=== PATIENT | male | born 1990 | race African-American/Black ===

== ENCOUNTER 2019-01-28 17:29 | Emergency (ER) | payer OTHER ==
--- NOTE | 2019-01-28 17:38 | ER Document Report ---
ED Medical Screen (RME) - General Chief Complaint: Probable Seizure Stated Complaint: HEAD INJURY Time Seen by Provider: 01/28/19 17:36 Mode of Arrival: Ambulatory Information source: Patient, Parent TRAVEL OUTSIDE OF THE [place] IN LAST 30 DAYS: No - HPI Patient complains to provider of: head trauma; possible seuzure Onset: Just prior to arrival - pt. with syncopal episode and hit head possible seizure. Feels better now - Related Data Allergies/Adverse Reactions: No Known Allergies Allergy (Unverified 01/28/19 17:34) Physical Exam - Vital signs Vitals: Temp Pulse Resp BP Pulse Ox 99.6 F 73 18 141/82 H 97 01/28/19 17:33 01/28/19 17:33 01/28/19 17:33 01/28/19 17:33 01/28/19 17:33 Course - Vital Signs Vital signs: Temp Pulse Resp BP Pulse Ox 99.6 F 73 18 141/82 H 97 01/28/19 17:33 01/28/19 17:33 01/28/19 17:33 01/28/19 17:33 01/28/19 17:33
[2019-01-28 17:58] LABS: ABSOLUTE EOSINOPHILS # (AUTO) 0.1 10^3/uL (0.0-0.6); ABSOLUTE LYMPHOCYTES (AUTO) 1.5 10^3/uL (0.5-4.7); ABSOLUTE MONOCYTES (AUTO) 0.4 10^3/uL (0.1-1.4); ABSOLUTE NEUT (AUTO) 1.3 10^3/uL (1.7-8.2); BASOPHILS % (AUTO) 0.4 % (0-2); EOSINOPHILS % (AUTO) 2.9 % (0-6); HEMATOCRIT 39.6 % (37.9-51.0); HEMOGLOBIN 13.1 g/dL (13.5-17.0); LYMPHOCYTES % (AUTO) 44.3 % (13-45); MEAN CORPUSCULAR HEMOGLOBIN 24.6 pg (27.0-33.4); MEAN CORPUSCULAR VOLUME 74 fl (80-97); MONOCYTES % (AUTO) 12.8 % (3-13); PLATELET COUNT 136 10^3/uL (150-450); RED BLOOD COUNT 5.32 10^6/uL (4.35-5.55); RED CELL DISTRIBUTION WIDTH 16.1 % (11.5-14.0); SEGMENTED NEUTROPHILS % (AUTO) 39.6 % (42-78); TOTAL CELLS COUNTED % (AUTO) 100 %; WHITE BLOOD COUNT 3.3 10^3/uL (4.0-10.5)
--- NOTE | 2019-01-28 18:13 | RADIOLOGY REPORT (SQ) ---
EXAM DESCRIPTION: CT HEAD WITHOUT COMPLETED DATE/TIME: 01/28/2019 6:02 pm REASON FOR STUDY: head trauma COMPARISON: None. TECHNIQUE: Axial images acquired through the brain without intravenous contrast. Images reviewed wi th bone, brain and subdural windows. Images stored on PACS. All CT scanners at this facility use dose modulation, iterative reconstruction, and/or weight based d osing when appropriate to reduce radiation dose to as low as reasonably achievable (ALARA). [facility]: Dose Right [facility]: CareDose [facility]: Dose Right [facility]: Teradose 4D [facility]: Snapette RADIATION DOSE: CT Rad equipment meets quality standard of care and radiation dose reduction techniq ues were employed. CTDIvol: 53.2 mGy. DLP: 1044 mGy-cm. mGy. LIMITATIONS: None. FINDINGS: VENTRICLES: Normal size and contour. CEREBRUM: No masses. No hemorrhage. No midline shift. No evidence for acute infarction. Normal gra y/white matter differentiation. No areas of low density in the white matter. CEREBELLUM: No masses. No hemorrhage. No alteration of density. No evidence for acute infarction. EXTRAAXIAL SPACES: No fluid collections. No masses. ORBITS AND GLOBE: No intra- or extraconal masses. Normal contour of globe without masses. CALVARIUM: No fracture. PARANASAL SINUSES: No fluid or mucosal thickening. SOFT TISSUES: No mass or hematoma. OTHER: No other significant finding. IMPRESSION: No acute intracranial findings. EVIDENCE OF ACUTE STROKE: NO. COMMENT: Quality ID # [id number]: Final reports with documentation of one or more dose reduction techniques (e.g., Automated exposure control, adjustment of the mA and/or kV according to patient size, use of iterative reconstruction technique) TECHNICAL DOCUMENTATION: JOB ID: [id number] [place]-72 2010 [employer]- All Rights Reserved Reading location - IP/workstation name: [email or web address]
[2019-01-28 18:15] LABS: ALANINE AMINOTRANSFERASE 57 U/L (21-72); ALBUMIN 4.3 g/dL (3.5-5.0); ALKALINE PHOSPHATASE 66 U/L (38-126); ANION GAP 6 (5-19); ASPARTATE AMINO TRANSFERASE 45 U/L (17-59); BILIRUBIN,DIRECT 0.2 mg/dL (0.0-0.4); BILIRUBIN,TOTAL 0.4 mg/dL (0.2-1.3); BLOOD UREA NITROGEN 13 mg/dL (7-20); CALCIUM 9.3 mg/dL (8.4-10.2); CARBON DIOXIDE 31 mmol/L (22-30); CHLORIDE 105 mmol/L (98-107); GLUCOSE 84 mg/dL (75-110); POTASSIUM 4.4 mmol/L (3.6-5.0); SODIUM 142.1 mmol/L (137-145); TOTAL PROTEIN 7.3 g/dL (6.3-8.2)
[2019-01-28 18:53] LABS: APPEARANCE,URINE CLEAR; BILIRUBIN,URINE NEGATIVE (NEGATIVE); COLOR,URINE STRAW; GLUCOSE, URINE NEGATIVE (NEGATIVE); KETONES,URINE NEGATIVE (NEGATIVE); LEUKOCYTE ESTERASE,URINE NEGATIVE (NEGATIVE); NITRITE,URINE NEGATIVE (NEGATIVE); PROTEIN,URINE NEGATIVE (NEGATIVE); UROBILINOGEN,URINE NEGATIVE mg/dL (<2.0)
[2019-01-28 19:08] LABS: URINE AMPHETAMINES SCREEN NEGATIVE; URINE BARBITURATES SCREEN NEGATIVE; URINE BENZODIAZEPINES SCREEN NEGATIVE; URINE COCAINE SCREEN NEGATIVE; URINE MARIJUANA (THC) SCREEN NEGATIVE; URINE METHADONE SCREEN NEGATIVE; URINE PHENCYCLIDINE SCREEN NEGATIVE
--- NOTE | 2019-01-28 19:19 | ER Document Report ---
ED General - General Chief Complaint: Probable Seizure Stated Complaint: HEAD INJURY Time Seen by Provider: 01/28/19 17:36 Primary Care Provider: GERMANIA,NORMAN [Primary Care Provider] - Follow up as needed Mode of Arrival: Ambulatory Notes: Patient is a 28-year-old male without chronic medical problems who presents after an episode in which he began choking on Oreo cookie, try to walk towards t he restroom and apparently had a loss of consciousness. Patient states prior to the loss of consciousness he felt very hot, flushed and like he was about to vomit. During the loss of consciousness apparently the patient had some jerking movements lasting less than 20 seconds. The patient then spontaneously regained consciousness without postictal phase. No intervention required for the patient to spontaneously resolve his symptoms. EMS was contacted. Patient states that while the first thing he remembers is the paramedics being in the house. No history of similar symptoms in the past. The patient reports no complaints at the time of my evaluation. Has not seen his general physician regarding today's concerns. Denies any known history of seizures. Has had 2 episodes of syncope in the past but not had a evaluation for those episodes of syncope. TRAVEL OUTSIDE OF THE [place] IN LAST 30 DAYS: No - Related Data Allergies/Adverse Reactions: No Known Allergies Allergy (Unverified 01/28/19 17:34) Past Medical History - General Information source: Patient, Parent - Social History Smoking Status: Never Smoker Chew tobacco use (# tins/day): No Frequency of alcohol use: None Drug Abuse: None Lives with: Family Family History: Reviewed & Not Pertinent Patient has suicidal ideation: No Patient has homicidal ideation: No Renal/ Medical History: Denies: Hx Peritoneal Dialysis Review of Systems - Review of Systems Notes: Constitutional: Negative for fever. HENT: Negative for sore throat. Eyes: Negative for visual changes. Cardiovascular: Negative for chest pain. Positive for syncope Respiratory: Negative for shortness of breath. Gastrointestinal: Negative for abdominal pain, vomiting or diarrhea. Genitourinary: Negative for dysuria. Musculoskeletal: Negative for back pain. Skin: Negative for rash. Neurological: Negative for headaches, weakness or numbness. 10 point ROS negative except as marked above and in HPI. Physical Exam - Vital signs Vitals: Temp Pulse Resp BP Pulse Ox 99.6 F 73 18 141/82 H 97 01/28/19 17:33 03/02/19 17:33 01/28/19 17:33 01/28/19 17:33 01/28/19 17:33 Interpretation: Hypertensive Notes: PHYSICAL EXAMINATION: GENERAL: Well-appearing, well-nourished and in no acute distress. HEAD: Atraumatic, normocephalic. EYES: Pupils equal round and reactive to light, extraocular movements intact, sclera anicteric, conjunctiva are normal. ENT: nares patent, oropharynx clear without exudates. Moist mucous membranes. NECK: Normal range of motion, supple without lymphadenopathy LUNGS: Breath sounds clear to auscultation bilaterally and equal. No wheezes r ales or rhonchi. HEART: Regular rate and rhythm without murmurs ABDOMEN: Soft, nontender, normoactive bowel sounds. No guarding, no rebound. No masses appreciated. EXTREMITIES: Normal range of motion, no pitting or edema. No cyanosis. NEUROLOGICAL: Face symmetric. Tongue protrudes midline. Extraocular motions intact. Pupils are 2 mm and equally reactive. Normal speech, normal gait. 5 o ut of 5 strength in both the distal and proximal upper and lower extremities bilaterally. Sensation is grossly intact throughout. Finger to nose testing normal. Pronator drift normal. PSYCH: Normal mood, normal affect. SKIN: Warm, Dry, normal turgor, no rashes or lesions noted. Course - Re-evaluation Re-evalutation: 01/28/19 19:17 Presentation of syncope likely secondary to a vasovagal episode in the setting of choking on Oreo cookie. Patient's history is not at all consistent with seizures, no postictal phase. CT of the head obtained in triage noted to be normal. Labs unremarkable. Patient normotensive, alert, without focal neurologic deficits at time of arrival. Denies syncope was during exertion. No preceding symptoms of palpitations, chest pain, or shortness of breath. Patient asymptomatic at time of arrival. EKG is without evidence of HCOM, right heart strain, ST changes to suggest ischemia, prolong QTc, delta wave, epsilon wave, or Brugada syndrome. Patient denies any family history of sudden cardiac , personal history of of structural heart disease. Patient denies any symptoms to suggest an acute PE, [place], TAD, SAH, or acute GI bleed as the etiology of their syncope today. On exam, no murmurs to suggest critical aortic stenosis as possible etiology. Based on overall clinical history, exam findings, vitals, and patients appearance, I feel it is safe for patient to be discharged home at this time with close outpatient follow-up and strict return precautions. Patient is in agreement with this plan, has verbalized indications for return to ED, and questions have been answered. - Vital Signs Vital signs: Temp Pulse Resp BP Pulse Ox 98.4 F 73 20 132/67 H 100 01/28/19 19:34 01/28/19 17:33 01/28/19 19:33 01/28/19 19:34 01/28/19 19:33 - Laboratory Result Diagrams: 01/28/19 17:43 01/28/19 17:43 Laboratory results interpreted by me: 01/28/19 01/28/19 17:43 17:43 WBC 3.3 L Hgb 13.1 L MCV 74 L MCH 24.6 L RDW 16.1 H Plt Count 136 L Seg Neutrophils % 39.6 L Absolute Neutrophils 1.3 L Carbon Dioxide 31 H Creatinine 1.51 H Est GFR (Non-Af Amer) 55 L - Diagnostic Test Radiology reviewed: Image reviewed, Reports reviewed Radiology results interpreted by me: 01/28/19 19:18 CT head: No acute intracranial bleed or mass Discharge - Discharge Clinical Impression: Syncope and collapse Choking Qualifiers: Encounter type: initial encounter Qualified Code(s): T17.308A - Unspecified foreign body in larynx causing other injury, initial encounter Condition: Good Disposition: HOME, SELF-CARE Additional Instructions: You were seen today after an episode of passing out. Your EKG here is normal. At this time, we do not feel that your episode of passing out was from any life- threatening cause. Your history, despite the shaking during your loss of consciousness is not consistent with a seizure. Please drink plenty of fluids over the next several days. Return to emergency department if you have any further episodes of syncope, headache, weakness, numbness, chest pain, or shortness of breath. Please follow up closely with your primary care physician. Referrals: [facility] [Primary Care Provider] - Follow up as needed
[2019-01-28 19:37] VITALS: BP 132/67
--- NOTE | 2019-01-29 22:54 | EKG REPORT ---
SEVERITY:- NORMAL ECG - SINUS RHYTHM : Confirmed by: Kaylah Scales 29-Jan-2019 22:53:42
== END 2019-01-28 19:38 | disposition home or self-care (01) ==
LOC: ER 17:29
DX: T17.328A Food in larynx causing other injury, initial encounter (principal); X58.XXXA Exposure to other specified factors, initial encounter; R55 Syncope and collapse
CPT/HCPCS: 36415; 70450; 80053; 80307; 81001; 85025; 93005; 93010; 99284